=== PATIENT | male | born 1945 | race Caucasian/White ===

== ENCOUNTER 2023-09-26 12:57 | Inpatient (IN) | payer OTHER ==
[~2023-09-26] VITALS: Ht 190.5 cm; Wt 145.1 kg
[2023-09-26 12:57] VITALS: BP_SYST 90; PULSE 95; RESP 19; TEMP 97.8; O2SAT 93
[2023-09-26] MEDS ORDERED: NACL 0.9% 1,000 ML IV ONE ×2 (13:00→14:30)
[2023-09-26 13:51] LABS: BASOPHILS % (AUTO) 0.3 % (0.0-2.0); EOSINOPHILS # (AUTO) 0.1 K/uL (0.0-0.4); EOSINOPHILS % (AUTO) 2.2 % (0.0-4.0); HEMATOCRIT 37.4 % (36-54); HEMOGLOBIN 12.7 g/dL (14.0-18.0); LYMPHOCYTES # (AUTO) 0.9 K/uL (1.0-5.5); LYMPHOCYTES % (AUTO) 19.7 % (20.5-51.5); MEAN CORPUSCULAR HEMOGLOBIN 33 pg (27-31); MEAN CORPUSCULAR HGB CONC 34 % (32-36); MEAN CORPUSCULAR VOLUME 98 fL (79.0-98.0); MONOCYTES # (AUTO) 0.5 K/uL (0.0-1.0); MONOCYTES % (AUTO) 10.9 % (1.7-9.3); NEUTROPHILS # (AUTO) 2.9 K/uL (1.8-7.7); NEUTROPHILS % (AUTO) 66.9 % (40.0-70.0); PLATELET COUNT (AUTO) 146 K/uL (130-430); RED BLOOD CELL COUNT(AUTO) 3.82 MIL/uL (4.2-6.2); RED CELL DISTRIBUTION WIDTH 13.7 % (9.0-15.0); WHITE BLOOD COUNT (AUTO) 4.3 K/uL (4.8-10.8)
[2023-09-26 14:14] LABS: ANION GAP 12 (5-15); CARBON DIOXIDE 22 mmol/L (23-29); CHLORIDE 109 mmol/L (98-107); CREATININE 1.52 mg/dL (0.55-1.30); GLUCOSE 83 mg/dL (74-106); POTASSIUM 3.1 mmol/L (3.5-5.1); SODIUM SERUM 143 mmol/L (136-145); UREA NITROGEN, BLOOD 19 mg/dL (8-21)
[2023-09-26 14:16] LABS: CALCIUM 6.7 mg/dL (8.4-11.0)
[2023-09-26] MEDS ORDERED: CARB1TAB10 PO (14:18)
[2023-09-26] MEDS ORDERED: SELE5TAB6 PO (14:18)
[2023-09-26] MEDS ORDERED: ESCI20TA PO (14:18)
[2023-09-26] MEDS ORDERED: HYDR-3927 PO (14:18)
[2023-09-26] MEDS ORDERED: TAMS-11 PO (14:18)
[2023-09-26] MEDS ORDERED: GABA-529 PO ×2 (14:18)
[2023-09-26] MEDS ORDERED: BUPR-120 PO (14:18)
[2023-09-26] MEDS ORDERED: ARIP10TA9 PO (14:18)
[2023-09-26] MEDS ORDERED: OXYB5TAB16 PO (14:18)
[2023-09-26] MEDS ORDERED: AMLO2.5T2 PO (14:18)
[2023-09-26] MEDS ORDERED: DIVA250T PO (14:18)
[2023-09-26] MEDS ORDERED: BUSP10TA3 PO (14:18)
[2023-09-26] MEDS ORDERED: VITD400 PO (14:18)
[2023-09-26] MEDS ORDERED: TRAZ300T2 PO (14:18)
[2023-09-26] MEDS ORDERED: HYDR25TA4 PO (14:18)
[2023-09-26] MEDS ORDERED: PRAS10TA9 PO (14:21)
[2023-09-26] MEDS ORDERED: CALCIUM CARBONATE 650 MG TABLET PO ONE (14:30)
[2023-09-26] MEDS ORDERED: POTASSIUM CHLORIDE 20 MEQ TABLET.ER PO ONE (14:30)
[2023-09-26 14:42] LABS: BILIRUBIN,URINE NEGATIVE (NEGATIVE); BLOOD, URINE 3+ (NEGATIVE); COLOR,URINE YELLOW (YELLOW); GLUCOSE,URINE NEGATIVE (NEGATIVE); KETONES,URINE NEGATIVE (NEGATIVE); LEUKOCYTE ESTERASE ,URINE NEGATIVE (NEGATIVE); NITRITE, URINE NEGATIVE (NEGATIVE); PROTEIN URINE NEGATIVE (NEGATIVE); UROBILINOGEN,URINE 0.2 (0.2-1.0)
[2023-09-26 14:43] LABS: CLARITY/URINE HAZY (CLEAR)
[2023-09-26] MEDS ORDERED: CALCIUM 500 MG/TAB PO ONE (14:45)
[2023-09-26 14:49] LABS: BACTERIA,URINE RARE /HPF (None Seen); RBC,URINE 50-80 /HPF (0-3); WBC,URINE 0-3 /HPF (0-3)
[2023-09-26 14:50] LABS: MUCUS,URINE 1+ /LPF (None Seen)
[2023-09-26] MEDS ORDERED: KETOROLAC TROMETHAMINE 30 MG VIAL IVP ONE (15:15)
[2023-09-26] MEDS ORDERED: cefTRIAXone 2 GM VIAL ONE (15:15)
[2023-09-26 17:53] LABS: INFLUENZA TYPE A Negative (NEGATIVE); INFLUENZA TYPE B NEGATIVE (NEGATIVE)
[2023-09-26] MEDS ORDERED: NALOXONE HCL 0.4 MG/ML AMP (NARCAN) IVP PRN (20:15)
[2023-09-26] MEDS ORDERED: HYDROcodone/ACETAMIN 5-325 MG TAB (NORCO/ VICODIN) PO PRN (20:15)
[2023-09-26] MEDS: HYDROcodone/ACETAMIN 10-325 MG TAB PO PRN (20:25)
[2023-09-26 21:00] VITALS: BP_SYST 114; PULSE 84; RESP 20; TEMP 98.4; O2SAT 99
[2023-09-27 00:25] VITALS: BP_SYST 124; PULSE 86; RESP 18; TEMP 98.3; O2SAT 99
[2023-09-27] MEDS: HYDROcodone/ACETAMIN 10-325 MG TAB PO PRN ×3 (02:45→17:20)
[2023-09-27 08:00] VITALS: BP_SYST 111; PULSE 63; RESP 16; TEMP 97; O2SAT 94
[2023-09-27] MEDS: cefTRIAXone 1 GM in D5W 50 ML IV SCH (10:17)
[2023-09-27] MEDS ORDERED: ONDANSETRON HCL 4 MG/2 ML VIAL IVP PRN (11:00)
[2023-09-27] MEDS ORDERED: INSULIN REGULAR, HUMAN 100 UNITS/ML, 3 ML VIAL (humuLIN R) SUBCUT PRN (11:00)
[2023-09-27] MEDS ORDERED: LORazepam 2 MG/ML VIAL IVP PRN (11:00)
[2023-09-27] MEDS ORDERED: ACETAMINOPHEN 325 MG TABLET PO PRN ×2 (11:00→11:15)
[2023-09-27] MEDS ORDERED: ESCITALOPRAM OXALATE 10 MG TABLET PO SCH (11:00)
[2023-09-27] MEDS ORDERED: ALBUTEROL SULFATE 0.083% 2.5 MG/3 ML VIAL.NEB INH PRN (11:15)
[2023-09-27] MEDS ORDERED: IPRATROPIUM BROM 0.5 MG/2.5 ML VIAL.NEB (ATROVENT) INH PRN (11:15)
[2023-09-27 11:21] VITALS: BP_SYST 111; PULSE 63; O2SAT 94
[2023-09-27 11:23] VITALS: BP_SYST 115; PULSE 75; RESP 16; TEMP 97.4; O2SAT 92
[2023-09-27] MEDS ORDERED: amLODIPine BESYLATE 5 MG TABLET PO ONE (11:30)
[2023-09-27] MEDS ORDERED: TAMSULOSIN HCL 0.4 MG CAP PO ONE (11:30)
[2023-09-27] MEDS ORDERED: CITALOPRAM HYDROBROMIDE 20 MG TABLET PO ONE (11:30)
[2023-09-27] MEDS ORDERED: CHOLECALCIFEROL (VITAMIN D-3) 400 UNIT TABLET PO ONE (11:30)
[2023-09-27] MEDS ORDERED: GABAPENTIN 100 MG CAPSULE PO ONE (11:30)
[2023-09-27] MEDS ORDERED: buPROPion HCL 150 MG XL TAB PO ONE (11:30)
[2023-09-27] MEDS ORDERED: oxyBUTYnin chloride 5 MG TABLET PO ONE (11:30)
[2023-09-27] MEDS ORDERED: ARIPiprazole 5 MG TAB PO ONE (11:30)
[2023-09-27 11:35] LABS: BASOPHILS % (AUTO) 0.6 % (0.0-2.0); EOSINOPHILS # (AUTO) 0.3 K/uL (0.0-0.4); EOSINOPHILS % (AUTO) 6.1 % (0.0-4.0); HEMATOCRIT 43.1 % (36-54); HEMOGLOBIN 14.4 g/dL (14.0-18.0); LYMPHOCYTES # (AUTO) 1.1 K/uL (1.0-5.5); LYMPHOCYTES % (AUTO) 27.6 % (20.5-51.5); MEAN CORPUSCULAR HEMOGLOBIN 33 pg (27-31); MEAN CORPUSCULAR HGB CONC 33 % (32-36); MEAN CORPUSCULAR VOLUME 98 fL (79.0-98.0); MONOCYTES # (AUTO) 0.6 K/uL (0.0-1.0); MONOCYTES % (AUTO) 15.4 % (1.7-9.3); NEUTROPHILS # (AUTO) 2.1 K/uL (1.8-7.7); NEUTROPHILS % (AUTO) 50.3 % (40.0-70.0); PLATELET COUNT (AUTO) 153 K/uL (130-430); RED BLOOD CELL COUNT(AUTO) 4.39 MIL/uL (4.2-6.2); RED CELL DISTRIBUTION WIDTH 13.9 % (9.0-15.0); WHITE BLOOD COUNT (AUTO) 4.2 K/uL (4.8-10.8)
[2023-09-27 11:40] LABS: ANION GAP 6 (5-15); CALCIUM 8.5 mg/dL (8.4-11.0); CARBON DIOXIDE 28 mmol/L (23-29); CHLORIDE 105 mmol/L (98-107); CREATININE 1.34 mg/dL (0.55-1.30); GLUCOSE 108 mg/dL (74-106); POTASSIUM 4.1 mmol/L (3.5-5.1); SODIUM SERUM 139 mmol/L (136-145); UREA NITROGEN, BLOOD 20 mg/dL (8-21)
[2023-09-27 15:31] VITALS: BP_SYST 131; PULSE 74; RESP 16; TEMP 97.2; O2SAT 94
[2023-09-27] MEDS ORDERED: CARB1TAB33 PO (16:22)
[2023-09-27] MEDS: NORMAL SALINE 5 ML DISP.SYRIN IVF SCH ×2 (17:18→21:55)
[2023-09-27] MEDS ORDERED: VIBE75TA PO (17:23)
[2023-09-27 20:00] VITALS: BP_SYST 134; PULSE 84; RESP 18; TEMP 98.3; O2SAT 98
[2023-09-27] MEDS ORDERED: CARBIDOPA PO SCH (21:00)
[2023-09-27] MEDS: PRASUGREL 10 MG TABLET PO SCH (21:00)
[2023-09-27] MEDS ORDERED: LEVODOPA PO SCH (21:00)
[2023-09-27] MEDS ORDERED: SELEGILINE HCL 5 MG TAB PO SCH (21:00)
[2023-09-27] MEDS ORDERED: PRASUGREL HCL 10 MG PO SCH (21:00)
[2023-09-27] MEDS ORDERED: CARBIDOPA/LEVODOPA 25/100 MG TABLET PO SCH (21:00)
[2023-09-27] MEDS: SELEGILINE 5 MG PO SCH (21:00)
[2023-09-27] MEDS: traZODone HCL 50 MG TABLET (DESYREL) PO SCH (21:50)
[2023-09-27] MEDS: busPIRone HCL 5 MG TABLET PO SCH (21:50)
[2023-09-27] MEDS: CARBIDOPA/LEVODOPA 25/100 MG TABLET PO SCH (21:50)
[2023-09-27] MEDS: HEPARIN SODIUM,PORCINE 5,000 UNITS/ML VIAL SUBCUT SCH (21:51)
[2023-09-27] MEDS: GABAPENTIN 100 MG CAPSULE PO SCH (21:51)
[2023-09-27] MEDS: DIVALPROEX SODIUM 250 MG TAB.SR.24H (DEPAKOTE ER) PO SCH (21:59)
[2023-09-28] VITALS: BP_SYST 134; PULSE 86; RESP 18; TEMP 98; O2SAT 99
[2023-09-28 06:00] LABS: EOSINOPHILS # (AUTO) 0.3 K/uL (0.0-0.4); HEMATOCRIT 41.8 % (36-54); HEMOGLOBIN 14.1 g/dL (14.0-18.0); LYMPHOCYTES # (AUTO) 1.4 K/uL (1.0-5.5); LYMPHOCYTES % (AUTO) 38.6 % (20.5-51.5); MEAN CORPUSCULAR HEMOGLOBIN 33 pg (27-31); MEAN CORPUSCULAR HGB CONC 34 % (32-36); MEAN CORPUSCULAR VOLUME 97 fL (79.0-98.0); MONOCYTES # (AUTO) 0.5 K/uL (0.0-1.0); MONOCYTES % (AUTO) 13.6 % (1.7-9.3); NEUTROPHILS # (AUTO) 1.4 K/uL (1.8-7.7); NEUTROPHILS % (AUTO) 38.8 % (40.0-70.0); PLATELET COUNT (AUTO) 160 K/uL (130-430); RED CELL DISTRIBUTION WIDTH 13.8 % (9.0-15.0); WHITE BLOOD COUNT (AUTO) 3.7 K/uL (4.8-10.8)
[2023-09-28] MEDS: NORMAL SALINE 5 ML DISP.SYRIN IVF SCH ×3 (06:07→21:16)
[2023-09-28 06:09] LABS: ALANINE AMINOTRANSFERASE 8 U/L (12-78); ANION GAP 9 (5-15); ASPARTATE AMINOTRANSFERASE 16 U/L (10-37); CALCIUM 8.5 mg/dL (8.4-11.0); CARBON DIOXIDE 28 mmol/L (23-29); CHLORIDE 103 mmol/L (98-107); CREATININE 1.11 mg/dL (0.55-1.30); GLUCOSE 86 mg/dL (74-106); PHOSPHORUS 3.6 mg/dL (2.7-4.5); POTASSIUM 4.2 mmol/L (3.5-5.1); SODIUM SERUM 140 mmol/L (136-145); TOTAL BILIRUBIN 0.5 mg/dL (0.0-1.0); TOTAL PROTEIN, SERUM 6.1 g/dL (6.4-8.3); UREA NITROGEN, BLOOD 22 mg/dL (8-21)
[2023-09-28] MEDS: SELEGILINE 5 MG PO SCH ×2 (09:00→21:07)
[2023-09-28] MEDS: PRASUGREL 10 MG TABLET PO SCH (09:00)
[2023-09-28] MEDS: DIVALPROEX SODIUM 250 MG TAB.SR.24H (DEPAKOTE ER) PO SCH ×2 (09:05→21:00)
[2023-09-28] MEDS: cefTRIAXone 1 GM in D5W 50 ML IV SCH (09:05)
[2023-09-28] MEDS: CITALOPRAM HYDROBROMIDE 20 MG TABLET PO SCH (09:06)
[2023-09-28] MEDS: TAMSULOSIN HCL 0.4 MG CAP PO SCH (09:06)
[2023-09-28] MEDS: ARIPiprazole 5 MG TAB PO SCH (09:06)
[2023-09-28] MEDS: busPIRone HCL 5 MG TABLET PO SCH ×2 (09:07→21:06)
[2023-09-28] MEDS: CHOLECALCIFEROL (VITAMIN D-3) 400 UNIT TABLET PO SCH (09:07)
[2023-09-28] MEDS: CARBIDOPA/LEVODOPA 25/100 MG TABLET PO SCH ×3 (09:07→21:06)
[2023-09-28] MEDS: buPROPion HCL 150 MG XL TAB PO SCH (09:07)
[2023-09-28] MEDS: GABAPENTIN 100 MG CAPSULE PO SCH ×2 (09:08→21:05)
[2023-09-28] MEDS: amLODIPine BESYLATE 5 MG TABLET PO SCH (09:08)
[2023-09-28] MEDS: oxyBUTYnin chloride 5 MG TABLET PO SCH (09:08)
[2023-09-28] MEDS: HEPARIN SODIUM,PORCINE 5,000 UNITS/ML VIAL SUBCUT SCH ×2 (09:11→21:06)
[2023-09-28 09:49] VITALS: O2SAT 94
[2023-09-28 09:59] VITALS: BP_SYST 130; PULSE 81; RESP 16; TEMP 97.8
[2023-09-28 11:12] VITALS: BP_SYST 142; PULSE 86; RESP 16; TEMP 98.9; O2SAT 93
[2023-09-28] MEDS: HYDROcodone/ACETAMIN 10-325 MG TAB PO PRN ×2 (11:33→21:23)
[2023-09-28 15:33] VITALS: BP_SYST 118; PULSE 85; RESP 16; TEMP 97.6; O2SAT 100
[2023-09-28] MEDS ORDERED: LACT10SO6 PO (16:23)
[2023-09-28] MEDS ORDERED: FINA-37 PO (16:25)
[2023-09-28 20:00] VITALS: BP_SYST 124; PULSE 86; RESP 18; TEMP 97.8; O2SAT 95; O2SAT 96
[2023-09-28] MEDS: traZODone HCL 50 MG TABLET (DESYREL) PO SCH (21:15)
[2023-09-29 00:11] VITALS: BP_SYST 140; PULSE 80; RESP 18; TEMP 97.8; O2SAT 95
[2023-09-29 04:30] LABS: ERYTHROCYTE SEDIMENTATION RATE 10 MM/HR (0-15)
[2023-09-29 04:40] LABS: BASOPHILS % (AUTO) 0.8 % (0.0-2.0); EOSINOPHILS # (AUTO) 0.4 K/uL (0.0-0.4); EOSINOPHILS % (AUTO) 8.4 % (0.0-4.0); HEMATOCRIT 41.7 % (36-54); HEMOGLOBIN 14.2 g/dL (14.0-18.0); LYMPHOCYTES % (AUTO) 45.3 % (20.5-51.5); MEAN CORPUSCULAR HEMOGLOBIN 33 pg (27-31); MEAN CORPUSCULAR HGB CONC 34 % (32-36); MEAN CORPUSCULAR VOLUME 97 fL (79.0-98.0); MONOCYTES # (AUTO) 0.6 K/uL (0.0-1.0); MONOCYTES % (AUTO) 13.6 % (1.7-9.3); NEUTROPHILS # (AUTO) 1.4 K/uL (1.8-7.7); NEUTROPHILS % (AUTO) 31.9 % (40.0-70.0); PLATELET COUNT (AUTO) 155 K/uL (130-430); RED CELL DISTRIBUTION WIDTH 13.8 % (9.0-15.0); WHITE BLOOD COUNT (AUTO) 4.5 K/uL (4.8-10.8)
[2023-09-29 05:15] LABS: ANION GAP 8 (5-15); CALCIUM 8.2 mg/dL (8.4-11.0); CARBON DIOXIDE 28 mmol/L (23-29); CHLORIDE 105 mmol/L (98-107); CREATININE 1.18 mg/dL (0.55-1.30); GLUCOSE 92 mg/dL (74-106); SODIUM SERUM 141 mmol/L (136-145); UREA NITROGEN, BLOOD 22 mg/dL (8-21)
[2023-09-29] MEDS: NORMAL SALINE 5 ML DISP.SYRIN IVF SCH ×2 (05:31→13:55)
[2023-09-29 08:00] VITALS: BP_SYST 133; PULSE 97; RESP 16; TEMP 98.2; O2SAT 94
[2023-09-29] MEDS: HYDROcodone/ACETAMIN 10-325 MG TAB PO PRN ×2 (09:11→20:48)
[2023-09-29] MEDS: cefTRIAXone 1 GM in D5W 50 ML IV SCH (09:50)
[2023-09-29] MEDS: amLODIPine BESYLATE 5 MG TABLET PO SCH (09:52)
[2023-09-29] MEDS: ARIPiprazole 5 MG TAB PO SCH (09:52)
[2023-09-29] MEDS: oxyBUTYnin chloride 5 MG TABLET PO SCH (09:53)
[2023-09-29] MEDS: busPIRone HCL 5 MG TABLET PO SCH ×2 (09:53→20:47)
[2023-09-29] MEDS: CARBIDOPA/LEVODOPA 25/100 MG TABLET PO SCH ×3 (09:53→20:48)
[2023-09-29] MEDS: CITALOPRAM HYDROBROMIDE 20 MG TABLET PO SCH (09:53)
[2023-09-29] MEDS: TAMSULOSIN HCL 0.4 MG CAP PO SCH (09:53)
[2023-09-29] MEDS: GABAPENTIN 100 MG CAPSULE PO SCH ×2 (09:54→21:41)
[2023-09-29] MEDS: buPROPion HCL 150 MG XL TAB PO SCH (09:54)
[2023-09-29] MEDS: CHOLECALCIFEROL (VITAMIN D-3) 400 UNIT TABLET PO SCH (09:54)
[2023-09-29] MEDS: HEPARIN SODIUM,PORCINE 5,000 UNITS/ML VIAL SUBCUT SCH ×2 (09:55→21:31)
[2023-09-29] MEDS: SELEGILINE 5 MG PO SCH ×2 (10:37→20:48)
[2023-09-29] MEDS: DIVALPROEX SODIUM 250 MG TAB.SR.24H (DEPAKOTE ER) PO SCH ×2 (10:38→20:49)
[2023-09-29] MEDS: PRASUGREL 10 MG TABLET PO SCH (10:38)
[2023-09-29 11:04] VITALS: BP_SYST 136; PULSE 83; RESP 20; TEMP 97.4; O2SAT 93
[2023-09-29 16:27] VITALS: BP_SYST 130; PULSE 83; RESP 18; TEMP 97.4; O2SAT 94
[2023-09-29 20:00] VITALS: BP_SYST 133; PULSE 72; RESP 18; TEMP 98; O2SAT 96
[2023-09-29] MEDS: traZODone HCL 50 MG TABLET (DESYREL) PO SCH (21:41)
[2023-09-30] VITALS (7 sets, daily range): BP systolic 119–165; PULSE 75–87; RESP 16–18; TEMP 97.5–97.8; O2SAT 94–98
[2023-09-30] MEDS: NORMAL SALINE 5 ML DISP.SYRIN IVF SCH ×4 (04:04→21:53)
[2023-09-30 05:45] LABS: ERYTHROCYTE SEDIMENTATION RATE 19 MM/HR (0-15)
[2023-09-30 05:52] LABS: BASOPHILS % (AUTO) 0.8 % (0.0-2.0); EOSINOPHILS # (AUTO) 0.3 K/uL (0.0-0.4); EOSINOPHILS % (AUTO) 7.5 % (0.0-4.0); HEMATOCRIT 43.9 % (36-54); HEMOGLOBIN 14.9 g/dL (14.0-18.0); LYMPHOCYTES # (AUTO) 1.5 K/uL (1.0-5.5); LYMPHOCYTES % (AUTO) 38.1 % (20.5-51.5); MEAN CORPUSCULAR HEMOGLOBIN 33 pg (27-31); MEAN CORPUSCULAR HGB CONC 34 % (32-36); MEAN CORPUSCULAR VOLUME 97 fL (79.0-98.0); MONOCYTES # (AUTO) 0.5 K/uL (0.0-1.0); MONOCYTES % (AUTO) 11.9 % (1.7-9.3); NEUTROPHILS # (AUTO) 1.7 K/uL (1.8-7.7); NEUTROPHILS % (AUTO) 41.7 % (40.0-70.0); PLATELET COUNT (AUTO) 158 K/uL (130-430); RED BLOOD CELL COUNT(AUTO) 4.53 MIL/uL (4.2-6.2); RED CELL DISTRIBUTION WIDTH 13.5 % (9.0-15.0)
[2023-09-30 06:22] LABS: ALANINE AMINOTRANSFERASE 8 U/L (12-78); ANION GAP 10 (5-15); ASPARTATE AMINOTRANSFERASE 17 U/L (10-37); CALCIUM 8.6 mg/dL (8.4-11.0); CARBON DIOXIDE 26 mmol/L (23-29); CHLORIDE 106 mmol/L (98-107); CREATININE 1.14 mg/dL (0.55-1.30); GLUCOSE 94 mg/dL (74-106); POTASSIUM 4.1 mmol/L (3.5-5.1); SODIUM SERUM 142 mmol/L (136-145); TOTAL BILIRUBIN 0.3 mg/dL (0.0-1.0); TOTAL PROTEIN, SERUM 6.4 g/dL (6.4-8.3); UREA NITROGEN, BLOOD 20 mg/dL (8-21)
[2023-09-30] MEDS: HYDROcodone/ACETAMIN 10-325 MG TAB PO PRN ×2 (08:58→15:18)
[2023-09-30] MEDS: amLODIPine BESYLATE 5 MG TABLET PO SCH (08:58)
[2023-09-30] MEDS: CHOLECALCIFEROL (VITAMIN D-3) 400 UNIT TABLET PO SCH (08:58)
[2023-09-30] MEDS: oxyBUTYnin chloride 5 MG TABLET PO SCH (09:00)
[2023-09-30] MEDS: ARIPiprazole 5 MG TAB PO SCH (09:00)
[2023-09-30] MEDS: buPROPion HCL 150 MG XL TAB PO SCH (09:02)
[2023-09-30] MEDS: TAMSULOSIN HCL 0.4 MG CAP PO SCH (09:02)
[2023-09-30] MEDS: CITALOPRAM HYDROBROMIDE 20 MG TABLET PO SCH (09:02)
[2023-09-30] MEDS: busPIRone HCL 5 MG TABLET PO SCH ×2 (09:03→21:30)
[2023-09-30] MEDS: CARBIDOPA/LEVODOPA 25/100 MG TABLET PO SCH ×3 (09:04→21:31)
[2023-09-30] MEDS: GABAPENTIN 100 MG CAPSULE PO SCH ×2 (09:05→21:50)
[2023-09-30] MEDS: SELEGILINE 5 MG PO SCH ×2 (09:06→21:33)
[2023-09-30] MEDS: PRASUGREL 10 MG TABLET PO SCH (09:06)
[2023-09-30] MEDS: cefTRIAXone 1 GM in D5W 50 ML IV SCH (09:09)
[2023-09-30] MEDS: HEPARIN SODIUM,PORCINE 5,000 UNITS/ML VIAL SUBCUT SCH ×2 (09:09→21:53)
[2023-09-30] MEDS: DIVALPROEX SODIUM 250 MG TAB.SR.24H (DEPAKOTE ER) PO SCH ×2 (11:53→21:33)
[2023-09-30] MEDS ORDERED: LEVO250T73 PO (15:55)
[2023-09-30] MEDS: traZODone HCL 50 MG TABLET (DESYREL) PO SCH (21:30)
[2023-10-01] VITALS (7 sets, daily range): BP systolic 135–156; PULSE 71–78; RESP 16–20; TEMP 97.2–98.1; O2SAT 95–98
[2023-10-01] MEDS: HYDROcodone/ACETAMIN 10-325 MG TAB PO PRN ×4 (01:45→20:54)
[2023-10-01] MEDS: NORMAL SALINE 5 ML DISP.SYRIN IVF SCH ×3 (05:13→22:04)
[2023-10-01 06:46] LABS: BASOPHILS % (AUTO) 0.6 % (0.0-2.0); EOSINOPHILS # (AUTO) 0.4 K/uL (0.0-0.4); EOSINOPHILS % (AUTO) 8.3 % (0.0-4.0); HEMATOCRIT 43.9 % (36-54); LYMPHOCYTES # (AUTO) 1.6 K/uL (1.0-5.5); LYMPHOCYTES % (AUTO) 37.2 % (20.5-51.5); MEAN CORPUSCULAR HEMOGLOBIN 33 pg (27-31); MEAN CORPUSCULAR HGB CONC 34 % (32-36); MEAN CORPUSCULAR VOLUME 97 fL (79.0-98.0); MONOCYTES # (AUTO) 0.6 K/uL (0.0-1.0); MONOCYTES % (AUTO) 13.1 % (1.7-9.3); NEUTROPHILS # (AUTO) 1.8 K/uL (1.8-7.7); NEUTROPHILS % (AUTO) 40.8 % (40.0-70.0); PLATELET COUNT (AUTO) 152 K/uL (130-430); RED BLOOD CELL COUNT(AUTO) 4.52 MIL/uL (4.2-6.2); RED CELL DISTRIBUTION WIDTH 13.8 % (9.0-15.0); WHITE BLOOD COUNT (AUTO) 4.3 K/uL (4.8-10.8)
[2023-10-01 07:12] LABS: ANION GAP 8 (5-15); CALCIUM 8.2 mg/dL (8.4-11.0); CARBON DIOXIDE 27 mmol/L (23-29); CHLORIDE 105 mmol/L (98-107); CREATININE 1.07 mg/dL (0.55-1.30); GLUCOSE 83 mg/dL (74-106); SODIUM SERUM 140 mmol/L (136-145); UREA NITROGEN, BLOOD 23 mg/dL (8-21)
[2023-10-01] MEDS: CHOLECALCIFEROL (VITAMIN D-3) 400 UNIT TABLET PO SCH (09:25)
[2023-10-01] MEDS: TAMSULOSIN HCL 0.4 MG CAP PO SCH (09:25)
[2023-10-01] MEDS: CARBIDOPA/LEVODOPA 25/100 MG TABLET PO SCH ×3 (09:26→20:53)
[2023-10-01] MEDS: busPIRone HCL 5 MG TABLET PO SCH ×2 (09:26→20:53)
[2023-10-01] MEDS: GABAPENTIN 100 MG CAPSULE PO SCH ×2 (09:26→20:53)
[2023-10-01] MEDS: CITALOPRAM HYDROBROMIDE 20 MG TABLET PO SCH (09:27)
[2023-10-01] MEDS: oxyBUTYnin chloride 5 MG TABLET PO SCH (09:27)
[2023-10-01] MEDS: ARIPiprazole 5 MG TAB PO SCH (09:29)
[2023-10-01] MEDS: amLODIPine BESYLATE 5 MG TABLET PO SCH (09:30)
[2023-10-01] MEDS: HEPARIN SODIUM,PORCINE 5,000 UNITS/ML VIAL SUBCUT SCH ×2 (09:37→20:55)
[2023-10-01] MEDS: buPROPion HCL 150 MG XL TAB PO SCH (09:37)
[2023-10-01] MEDS: SELEGILINE 5 MG PO SCH ×2 (09:38→20:57)
[2023-10-01] MEDS: levoFLOXacin 250 MG TABLET PO SCH (10:11)
[2023-10-01] MEDS: PRASUGREL 10 MG TABLET PO SCH (10:45)
[2023-10-01] MEDS: DIVALPROEX SODIUM 250 MG TAB.SR.24H (DEPAKOTE ER) PO SCH ×2 (10:46→20:57)
[2023-10-01] MEDS: traZODone HCL 50 MG TABLET (DESYREL) PO SCH (21:16)
[2023-10-02] VITALS: BP_SYST 132; PULSE 82; RESP 20; TEMP 97.7; O2SAT 94
[2023-10-02 02:21] VITALS: BP_SYST 137; PULSE 78; RESP 20; TEMP 98.1; O2SAT 95
[2023-10-02] MEDS: NORMAL SALINE 5 ML DISP.SYRIN IVF SCH ×2 (05:55→13:43)
[2023-10-02 06:59] LABS: BASOPHILS % (AUTO) 0.9 % (0.0-2.0); EOSINOPHILS # (AUTO) 0.4 K/uL (0.0-0.4); EOSINOPHILS % (AUTO) 9.4 % (0.0-4.0); HEMATOCRIT 43.8 % (36-54); HEMOGLOBIN 14.9 g/dL (14.0-18.0); LYMPHOCYTES # (AUTO) 1.6 K/uL (1.0-5.5); MEAN CORPUSCULAR HEMOGLOBIN 33 pg (27-31); MEAN CORPUSCULAR HGB CONC 34 % (32-36); MEAN CORPUSCULAR VOLUME 97 fL (79.0-98.0); MONOCYTES # (AUTO) 0.6 K/uL (0.0-1.0); MONOCYTES % (AUTO) 14.3 % (1.7-9.3); NEUTROPHILS # (AUTO) 1.5 K/uL (1.8-7.7); NEUTROPHILS % (AUTO) 36.4 % (40.0-70.0); PLATELET COUNT (AUTO) 152 K/uL (130-430); RED BLOOD CELL COUNT(AUTO) 4.49 MIL/uL (4.2-6.2); RED CELL DISTRIBUTION WIDTH 13.7 % (9.0-15.0)
[2023-10-02 07:25] LABS: ALANINE AMINOTRANSFERASE 13 U/L (12-78); ALBUMIN 2.9 g/dL (3.4-4.8); ANION GAP 7 (5-15); ASPARTATE AMINOTRANSFERASE 25 U/L (10-37); CALCIUM 8.6 mg/dL (8.4-11.0); CARBON DIOXIDE 27 mmol/L (23-29); CHLORIDE 105 mmol/L (98-107); CREATININE 1.22 mg/dL (0.55-1.30); GLUCOSE 81 mg/dL (74-106); SODIUM SERUM 139 mmol/L (136-145); TOTAL BILIRUBIN 0.4 mg/dL (0.0-1.0); TOTAL PROTEIN, SERUM 6.4 g/dL (6.4-8.3); UREA NITROGEN, BLOOD 27 mg/dL (8-21)
[2023-10-02 08:00] VITALS: BP_SYST 138; PULSE 74; RESP 18; TEMP 98.1; O2SAT 0; O2SAT 98
[2023-10-02] MEDS: busPIRone HCL 5 MG TABLET PO SCH (09:49)
[2023-10-02] MEDS: CITALOPRAM HYDROBROMIDE 20 MG TABLET PO SCH (09:49)
[2023-10-02] MEDS: ARIPiprazole 5 MG TAB PO SCH (09:50)
[2023-10-02] MEDS: TAMSULOSIN HCL 0.4 MG CAP PO SCH (09:50)
[2023-10-02] MEDS: levoFLOXacin 250 MG TABLET PO SCH (09:50)
[2023-10-02] MEDS: buPROPion HCL 150 MG XL TAB PO SCH (09:50)
[2023-10-02] MEDS: amLODIPine BESYLATE 5 MG TABLET PO SCH (09:51)
[2023-10-02] MEDS: CARBIDOPA/LEVODOPA 25/100 MG TABLET PO SCH ×2 (09:51→15:00)
[2023-10-02] MEDS: GABAPENTIN 100 MG CAPSULE PO SCH (09:52)
[2023-10-02] MEDS: CHOLECALCIFEROL (VITAMIN D-3) 400 UNIT TABLET PO SCH (09:52)
[2023-10-02] MEDS: SELEGILINE 5 MG PO SCH (09:52)
[2023-10-02] MEDS: DIVALPROEX SODIUM 250 MG TAB.SR.24H (DEPAKOTE ER) PO SCH (09:53)
[2023-10-02] MEDS: HEPARIN SODIUM,PORCINE 5,000 UNITS/ML VIAL SUBCUT SCH (09:57)
[2023-10-02] MEDS: HYDROcodone/ACETAMIN 10-325 MG TAB PO PRN ×2 (10:00→14:40)
[2023-10-02 10:59] VITALS: BP_SYST 162; PULSE 86; RESP 20; TEMP 98.6; O2SAT 94
[2023-10-02] MEDS: PRASUGREL 10 MG TABLET PO SCH (11:13)
[2023-10-02] MEDS: oxyBUTYnin chloride 5 MG TABLET PO SCH (11:13)
[2023-10-02 14:01] VITALS: BP_SYST 132; PULSE 78; RESP 18; TEMP 98.4; O2SAT 98
== END 2023-10-02 16:15 | DRG 871 ==
LOC: SED 12:57 → STU 16:19 → SMU 09-28 11:49
PROVIDERS: ADMIT Preventive Medicine Preventive Medicine/Occupational Environmental Medicine; ATTEND Preventive Medicine Preventive Medicine/Occupational Environmental Medicine
DX: A41.9 Sepsis, unspecified organism (principal); J18.9 Pneumonia, unspecified organism; E44.0 Moderate protein-calorie malnutrition; J44.0 Chronic obstructive pulmonary disease with (acute) lower respiratory infection; N17.9 Acute kidney failure, unspecified; Z68.41 Body mass index [BMI] 40.0-44.9, adult; E11.21 Type 2 diabetes mellitus with diabetic nephropathy; E11.40 Type 2 diabetes mellitus with diabetic neuropathy, unspecified; E83.51 Hypocalcemia; E83.52 Hypercalcemia; E88.09 Other disorders of plasma-protein metabolism, not elsewhere classified; F02.80 Dementia in other diseases classified elsewhere, unspecified severity, without behavioral disturbance, psychotic disturbance, mood disturbance, and anxiety; G20.A1 Parkinson's disease without dyskinesia, without mention of fluctuations; I11.9 Hypertensive heart disease without heart failure; Z20.822 Contact with and (suspected) exposure to COVID-19; I48.0 Paroxysmal atrial fibrillation; E86.0 Dehydration; N39.41 Urge incontinence; K76.0 Fatty (change of) liver, not elsewhere classified; M17.11 Unilateral primary osteoarthritis, right knee; N40.0 Benign prostatic hyperplasia without lower urinary tract symptoms; Z86.73 Personal history of transient ischemic attack (TIA), and cerebral infarction without residual deficits; Z87.440 Personal history of urinary (tract) infections
CPT/HCPCS: 36415; 70450-TC; 71045; 73564; 76376; 76770; 80048; 80053; 81000; 81001; 81015; 82962; 83605; 83735; 84100; 84484; 85025; 85651-TC; 87040; 87086; 93005; 93306; 94760; 96361; 96365; 96375; 97110-GP; 97116-GP; 97530-GP; 99285; G0378; J0696; J1644; J1815; J1885; J2060; J7060

== ENCOUNTER 2024-01-06 05:25 | Inpatient (IN) | payer OTHER ==
[2023-12-30 11:35] LABS: BASOPHILS % (AUTO) 0.7 % (0.0-2.0); EOSINOPHILS # (AUTO) 0.4 K/uL (0.0-0.4); EOSINOPHILS % (AUTO) 6.8 % (0.0-4.0); HEMATOCRIT 48.5 % (36-54); HEMOGLOBIN 16.7 g/dL (14.0-18.0); LYMPHOCYTES # (AUTO) 2.3 K/uL (1.0-5.5); LYMPHOCYTES % (AUTO) 39.5 % (20.5-51.5); MEAN CORPUSCULAR HEMOGLOBIN 34 pg (27-31); MEAN CORPUSCULAR HGB CONC 35 % (32-36); MEAN CORPUSCULAR VOLUME 97 fL (79.0-98.0); MONOCYTES # (AUTO) 0.8 K/uL (0.0-1.0); NEUTROPHILS # (AUTO) 2.4 K/uL (1.8-7.7); PLATELET COUNT (AUTO) 215 K/uL (130-430); RED BLOOD CELL COUNT(AUTO) 4.99 MIL/uL (4.2-6.2); RED CELL DISTRIBUTION WIDTH 14.3 % (9.0-15.0); WHITE BLOOD COUNT (AUTO) 5.9 K/uL (4.8-10.8)
[2023-12-30 11:40] LABS: ALANINE AMINOTRANSFERASE 10 U/L (12-78); ALBUMIN 3.6 g/dL (3.4-4.8); ANION GAP 11 (5-15); ASPARTATE AMINOTRANSFERASE 17 U/L (10-37); CALCIUM 8.9 mg/dL (8.4-11.0); CARBON DIOXIDE 25 mmol/L (23-29); CHLORIDE 101 mmol/L (98-107); CREATININE 1.56 mg/dL (0.55-1.30); GLUCOSE 92 mg/dL (74-106); SODIUM SERUM 137 mmol/L (136-145); TOTAL BILIRUBIN 0.4 mg/dL (0.0-1.0); TOTAL PROTEIN, SERUM 7.7 g/dL (6.4-8.3); UREA NITROGEN, BLOOD 30 mg/dL (8-21)
[2023-12-30 11:45] LABS: INR 1.1 (0.80-1.20)
[~2024-01-06] VITALS: Ht 190.5 cm; Wt 142.4 kg
[~2024-01-06 05:25] MED LIST: AMLO2.5T2 PO; ARIP10TA9 PO; BUPR-120 PO; BUSP10TA3 PO; CARB1TAB33 PO; CEFAZOLIN SOD 2 GM in D5W 50 ML IV SCH; DIVA250T PO; ESCI20TA PO; FINA-37 PO; GABA-529 PO; HYDR-3927 PO; LACT10SO6 PO; LEVO250T73 PO; OXYB5TAB21 PO; PRAS10TA9 PO; SELE5TAB6 PO; TAMS-11 PO; TRAZ300T2 PO; VIBE75TA PO; VITD400 PO
[2024-01-06] MEDS: GABAPENTIN 300 MG CAPSULE ONE (05:38)
[2024-01-06] MEDS: oxyCODONE HCL 10 MG TAB.ER.12H PO ONE ×2 (05:38→07:07)
[2024-01-06] MEDS: ACETAMINOPHEN 500 MG TABLET ONE (05:38)
[2024-01-06] MEDS: SCOPOLAMINE HYDROBROMIDE 1 MG PATCH .72 H (TRANSDERM-SCOP) TD ONE ×2 (05:38→06:03)
[2024-01-06] MEDS: ACETAMINOPHEN 500 MG TABLET PO ONE (06:03)
[2024-01-06] MEDS: GABAPENTIN 300 MG CAPSULE PO ONE (06:03)
[2024-01-06] MEDS ORDERED: SCOPOLAMINE HYDROBROMIDE 1 MG PATCH .72 H (TRANSDERM-SCOP) TD ONE (07:00)
[2024-01-06] MEDS ORDERED: CELECOXIB 100 MG CAPSULE PO ONE (07:00)
[2024-01-06] MEDS ORDERED: GABAPENTIN 300 MG CAPSULE PO ONE (07:00)
[2024-01-06] MEDS ORDERED: ACETAMINOPHEN 500 MG TABLET PO ONE (07:00)
[2024-01-06] MEDS: ceFAZolin SODIUM 2 GM in D5W 100 ML IV ONE (07:00)
[2024-01-06] MEDS ORDERED: MIDAZOLAM HCL 2 MG/2 ML VIAL (VERSED) ONE (07:10)
[2024-01-06] MEDS ORDERED: DEXAMETHASONE SOD PHOSPHATE 4 MG/ML VIAL ONE (07:10)
[2024-01-06] MEDS ORDERED: BISACODYL 10 MG/SUPPOSITORY RC PRN (07:15)
[2024-01-06] MEDS ORDERED: DIPHENHYDRAMINE HCL 25 MG CAPSULE PO PRN (07:15)
[2024-01-06] MEDS ORDERED: HYDROmorphone 1 MG/ML INJ. CARTRIDGE IVP PRN ×2 (08:15→11:00)
[2024-01-06] MEDS: LR 1,000 ML IV SCH (08:15)
[2024-01-06] MEDS ORDERED: MEPERIDINE HCL/PF 25 MG/ML DISP.SYRIN IVP PRN (08:15)
[2024-01-06] MEDS ORDERED: METOCLOPRAMIDE HCL 10 MG/2 ML VIAL IVP PRN (08:15)
[2024-01-06] MEDS ORDERED: hydrALAZINE HCL 20 MG/ML VIAL IVP PRN (08:15)
[2024-01-06] MEDS ORDERED: LABETALOL 100 MG/ 20ML VIAL IVP PRN (08:15)
[2024-01-06] MEDS: busPIRone HCL 5 MG TABLET PO SCH (09:00)
[2024-01-06] MEDS: buPROPion HCL 150 MG XL TAB PO SCH (09:00)
[2024-01-06] MEDS: CARBIDOPA/LEVODOPA 25/100 MG TABLET PO SCH (09:00)
[2024-01-06] MEDS: SELEGILINE HCL 5 MG TAB PO SCH (09:00)
[2024-01-06] MEDS: DIVALPROEX SODIUM 250 MG TAB.SR.24H (DEPAKOTE ER) PO SCH (09:00)
[2024-01-06] MEDS: amLODIPine BESYLATE 5 MG TABLET PO SCH (09:00)
[2024-01-06] MEDS: HYDROmorphone 1 MG/ML INJ. CARTRIDGE ONE ×4 (10:43→14:14)
[2024-01-06] MEDS: HYDROmorphone 1 MG/ML INJ. CARTRIDGE IVP PRN ×2 (10:47→13:40)
[2024-01-06] MEDS ORDERED: TAMSULOSIN HCL 0.4 MG CAP PO ONE (11:00)
[2024-01-06] MEDS ORDERED: LORATADINE 10 MG TABLET PO PRN (11:00)
[2024-01-06] MEDS ORDERED: oxyCODONE HCL 5 MG TABLET PO PRN (11:00)
[2024-01-06] MEDS ORDERED: ONDANSETRON HCL 4 MG/2 ML VIAL IVP PRN (11:45)
[2024-01-06] MEDS ORDERED: ceFAZolin SODIUM 2 GM in D5W 100 ML IV SCH (13:00)
[2024-01-06] MEDS: CEFAZOLIN SOD 2 GM in D5W 50 ML IV SCH (16:12)
[2024-01-06 16:40] VITALS: BP_SYST 151; PULSE 102; RESP 18; TEMP 97.8
[2024-01-06] MEDS: oxyCODONE HCL 5 MG TABLET PO PRN (16:56)
[2024-01-06 20:00] VITALS: BP_SYST 154; PULSE 113; RESP 20; TEMP 98.6; O2SAT 91
[2024-01-06] MEDS: SENNOSIDES/DOCUSATE SODIUM 1 TAB TABLET(SENOKOT-S) PO SCH (22:29)
[2024-01-06] MEDS: GABAPENTIN 100 MG CAPSULE PO SCH (22:29)
[2024-01-07] VITALS: BP_SYST 141; PULSE 104; RESP 18; TEMP 99.4; O2SAT 93
[2024-01-07 06:07] LABS: BASOPHILS % (AUTO) 0.1 % (0.0-2.0); HEMATOCRIT 44.2 % (36-54); HEMOGLOBIN 15.4 g/dL (14.0-18.0); LYMPHOCYTES # (AUTO) 1.1 K/uL (1.0-5.5); LYMPHOCYTES % (AUTO) 11.1 % (20.5-51.5); MEAN CORPUSCULAR HEMOGLOBIN 33 pg (27-31); MEAN CORPUSCULAR HGB CONC 35 % (32-36); MEAN CORPUSCULAR VOLUME 96 fL (79.0-98.0); MONOCYTES # (AUTO) 1.5 K/uL (0.0-1.0); MONOCYTES % (AUTO) 15.2 % (1.7-9.3); NEUTROPHILS # (AUTO) 7.3 K/uL (1.8-7.7); NEUTROPHILS % (AUTO) 73.6 % (40.0-70.0); PLATELET COUNT (AUTO) 180 K/uL (130-430); RED BLOOD CELL COUNT(AUTO) 4.61 MIL/uL (4.2-6.2); WHITE BLOOD COUNT (AUTO) 9.9 K/uL (4.8-10.8)
[2024-01-07 06:31] LABS: ALANINE AMINOTRANSFERASE 9 U/L (12-78); ALBUMIN 3.1 g/dL (3.4-4.8); ANION GAP 10 (5-15); ASPARTATE AMINOTRANSFERASE 28 U/L (10-37); CALCIUM 8.3 mg/dL (8.4-11.0); CARBON DIOXIDE 26 mmol/L (23-29); CHLORIDE 101 mmol/L (98-107); CREATININE 1.55 mg/dL (0.55-1.30); GLUCOSE 126 mg/dL (74-106); POTASSIUM 4.1 mmol/L (3.5-5.1); SODIUM SERUM 137 mmol/L (136-145); TOTAL BILIRUBIN 0.6 mg/dL (0.0-1.0); TOTAL PROTEIN, SERUM 6.9 g/dL (6.4-8.3); UREA NITROGEN, BLOOD 23 mg/dL (8-21)
[2024-01-07] MEDS: HYDROmorphone 1 MG/ML INJ. CARTRIDGE IVP PRN (06:37)
[2024-01-07] MEDS ORDERED: oxyCODONE HCL 5 MG TABLET PO PRN (06:45)
[2024-01-07 08:00] VITALS: BP_SYST 150; PULSE 100; RESP 22; TEMP 98.7; O2SAT 98
[2024-01-07] MEDS ORDERED: TAMSULOSIN HCL 0.4 MG CAP PO SCH (09:00)
[2024-01-07] MEDS: CEFAZOLIN SOD 2 GM in D5W 50 ML IV SCH (09:00)
[2024-01-07] MEDS ORDERED: SELEGILINE HCL 5 MG TABLET PO SCH (09:00)
[2024-01-07] MEDS: ENOXAPARIN SODIUM 40 MG/0.4 ML SYRINGE SUBCUT SCH (09:39)
[2024-01-07 12:13] VITALS: BP_SYST 145; PULSE 101; RESP 20; TEMP 98.9; O2SAT 98
[2024-01-07 16:23] VITALS: BP_SYST 148; PULSE 102; RESP 21; TEMP 98.8; O2SAT 99
[2024-01-07 20:00] VITALS: BP_SYST 133; PULSE 101; RESP 18; TEMP 98.9; O2SAT 95
[2024-01-07] MEDS: SELEGILINE HCL 5 MG TABLET PO SCH (21:00)
[2024-01-07] MEDS ORDERED: PATIENT'S OWN TABLET PO SCH (21:00)
[2024-01-08 00:58] VITALS: BP_SYST 141; PULSE 107; RESP 20; TEMP 99.4; O2SAT 96
[2024-01-08 08:00] VITALS: BP_SYST 131; PULSE 114; RESP 20; TEMP 99; O2SAT 94; O2SAT 96
[2024-01-08] MEDS: CITALOPRAM HYDROBROMIDE 20 MG TABLET PO SCH (10:43)
[2024-01-08] MEDS: GABAPENTIN 100 MG CAPSULE PO SCH (10:44)
[2024-01-08 11:06] VITALS: BP_SYST 124; PULSE 94; RESP 20; TEMP 98.2; O2SAT 91
[2024-01-08 16:04] VITALS: BP_SYST 123; PULSE 94; RESP 20; TEMP 98.2; O2SAT 95
[2024-01-08] MEDS: LR 1,000 ML IV SCH (18:37)
[2024-01-08] MEDS: ACETAMINOPHEN 500 MG TABLET PO PRN (18:37)
[2024-01-08 20:14] VITALS: BP_SYST 143; PULSE 99; RESP 18; TEMP 98.6; O2SAT 94
[2024-01-09 00:40] VITALS: BP_SYST 137; PULSE 96; RESP 16; TEMP 98.8; O2SAT 96
[2024-01-09 08:00] VITALS: BP_SYST 142; PULSE 96; RESP 18; TEMP 98.8; O2SAT 92
[2024-01-09] MEDS: LACTULOSE 20 GM/30 ML UDC PO PRN (09:28)
[2024-01-09 12:10] VITALS: BP_SYST 138; PULSE 92; RESP 18; TEMP 97.6; O2SAT 99
[2024-01-09 13:23] VITALS: BP_SYST 138; PULSE 92; RESP 18; TEMP 98.2; O2SAT 99
== END 2024-01-09 15:55 | DRG 470 ==
LOC: SDS 05:25 → SMU 05:25 → EDSTATUS 07:30 → SMU 14:30 → SDS 01-08 06:10 → SMU 01-08 06:32
PROVIDERS: ADMIT Student in an Organized Health Care Education/Training Program; ATTEND Student in an Organized Health Care Education/Training Program
PROC: 0SRC0J9 Replacement of Right Knee Joint with Synthetic Substitute, Cemented, Open Approach (ICD-10-PCS; principal; 2024-01-06 07:15)
DX: M17.11 Unilateral primary osteoarthritis, right knee (principal)
CPT/HCPCS: 36415; 71046; 73560; 80053; 85025; 85610; 85730; 87081; 88305; 88311; 97110-GP; 97112-GP; 97116-GP; 97530-GP; C1776; J0690; J0696; J1100; J1170; J1650; J2405; J3010; J3370; J3465; J3490; J7060; J7120

== ENCOUNTER 2024-02-14 21:06 | Emergency (ER) | payer OTHER ==
[~2024-02-14] VITALS: Ht 190.5 cm; Wt 137.4 kg
[~2024-02-14 21:06] MED LIST changes: -CEFAZOLIN SOD 2 GM in D5W 50 ML IV SCH
[2024-02-14 21:20] VITALS: BP_SYST 133; PULSE 119; RESP 19; TEMP 98.3; O2SAT 94
[2024-02-14 21:52] LABS: BILIRUBIN,URINE NEGATIVE (NEGATIVE); BLOOD, URINE 3+ (NEGATIVE); COLOR,URINE YELLOW (YELLOW); GLUCOSE,URINE NEGATIVE (NEGATIVE); KETONES,URINE NEGATIVE (NEGATIVE); LEUKOCYTE ESTERASE ,URINE 3+ (NEGATIVE); NITRITE, URINE POSITIVE (NEGATIVE); PROTEIN URINE 2+ (NEGATIVE); UROBILINOGEN,URINE 0.2 (0.2-1.0)
[2024-02-14 21:54] LABS: CLARITY/URINE HAZY (CLEAR)
[2024-02-14 22:09] LABS: BACTERIA,URINE MANY /HPF (None Seen); WBC,URINE >100 /HPF (0-3)
[2024-02-14] MEDS ORDERED: CIPR500T5 PO (22:14)
[2024-02-14] MEDS: cefTRIAXone 1 GM in LIDOCAINE 1%, 20 ML MDV 2.1 ML IM ONE (22:34)
[2024-02-14 22:37] VITALS: BP_SYST 133; PULSE 119; RESP 19; TEMP 98.3; O2SAT 94
== END 2024-02-14 22:36 | disposition home or self-care (01) ==
LOC: SED 21:06
DX: T83.098A Other mechanical complication of other urinary catheter, initial encounter (principal); N39.0 Urinary tract infection, site not specified; E11.9 Type 2 diabetes mellitus without complications; I10 Essential (primary) hypertension; Z79.899 Other long term (current) drug therapy; Z79.2 Long term (current) use of antibiotics; X58.XXXA Exposure to other specified factors, initial encounter
CPT/HCPCS: 99284; 81001; 87086; 51702; 96372; J0696; 81000; 81015; J2001